=== PATIENT | male | born 1990 | race Caucasian/White ===

== ENCOUNTER 2023-08-24 03:33 | Emergency (ER) | payer OTHER ==
[2023-08-24 03:42] VITALS: BP 122/74; PULSE 110; RESP 20; TEMP 98; BMI 22.1
[2023-08-24 05:37] LABS: EOS % 0.1 % (0-4.5); HEMATOCRIT 37.1 % (35.4-49); HEMOGLOBIN 12.3 GM/dL (11.7-16.9); LYMPH % 14.4 % (8-40); MCH 33.6 pg (25.7-33.7); MCHC 33.1 g/dl (32.0-35.9); MEAN CELL VOLUME 101.6 fl (80-96); MEAN PLT VOLUME 7.5 fl (7.5-11.1); MONO % 4.8 % (3.8-10.2); NEUT % 79.7 % (42.8-82.8); PLATELET COUNT 239 10^3/uL (134-434); RBC 3.65 M/mm3 (4.00-5.60); RDW 13.2 % (11.9-15.9); WHITE BLOOD COUNT 13.7 K/mm3 (4.0-10.0)
[2023-08-24 05:54] LABS: POTASSIUM 3.9 mmol/L (3.5-5.1)
[2023-08-24] MEDS: SODIUM CHLORIDE 1,000 ML IV STA (05:54)
[2023-08-24 06:23] LABS: ALBUMIN 4.4 g/dl (3.4-5.0); BILIRUBIN,TOTAL 0.3 mg/dL (0.2-1); CALCIUM 9.6 mg/dL (8.5-10.1); TOT PROT 7.7 g/dl (6.4-8.2)
== END 2023-08-24 06:47 | disposition home or self-care (01) ==
LOC: JER 03:33
PROC: 3E0337Z Introduction of Electrolytic and Water Balance Substance into Peripheral Vein, Percutaneous Approach (ICD-10-PCS; principal; 2023-08-24)
DX: R63.0 Anorexia (principal); F41.9 Anxiety disorder, unspecified
CPT/HCPCS: 36415; 80053; 83735; 84100; 85025; 93005; 93010; 99284-25

== ENCOUNTER 2023-12-01 22:03 | Inpatient (IN) | payer OTHER ==
[2023-12-01] MEDS ORDERED: FAMOTIDINE 20 MG/50 ML IVPB 20 MG/50 ML MG IVPB ONE ×2 (22:40→23:49)
[2023-12-01 23:54] LABS: INR 1.09 (0.83-1.09); PROTHROMBIN TIME (PATIENT) 12.5 SEC (9.7-13.0)
[2023-12-01] MEDS: SODIUM CHLORIDE 0.9% 500 ML INFUS.BAG IV ONE (23:54)
[2023-12-01 23:57] LABS: ACTIVATED PTT 27.5 SECONDS (25.2-36.5)
[2023-12-02 00:06] LABS: HEMATOCRIT 47.6 % (35.4-49); HEMOGLOBIN 16.4 GM/dL (11.7-16.9); MCH 33.4 pg (25.7-33.7); MCHC 34.6 g/dl (32.0-35.9); MEAN CELL VOLUME 96.5 fl (80-96); MEAN PLT VOLUME 8.9 fl (7.5-11.1); PLATELET COUNT 240 10^3/uL (134-434); RBC 4.93 M/mm3 (4.00-5.60); RDW 12.9 % (11.9-15.9); WHITE BLOOD COUNT 28.3 K/mm3 (4.0-10.0)
[2023-12-02 01:40] LABS: HEMATOCRIT 48.8 % (35.4-49); HEMOGLOBIN 17.1 GM/dL (11.7-16.9); MCH 33.3 pg (25.7-33.7); MCHC 35.1 g/dl (32.0-35.9); MEAN CELL VOLUME 94.7 fl (80-96); MEAN PLT VOLUME 9.2 fl (7.5-11.1); PLATELET COUNT 242 10^3/uL (134-434); RBC 5.15 M/mm3 (4.00-5.60); RDW 13.2 % (11.9-15.9); WHITE BLOOD COUNT 29.9 K/mm3 (4.0-10.0)
[2023-12-02 01:54] LABS: EPI CELLS >36 /uL (0-25.1); HYALINE CASTS 16 /uL (0-3.1); URINE APPEARANCE TURBID; URINE BILIRUBIN NEGATIVE (NEGATIVE); URINE COLOR DK YELLOW; URINE GLUCOSE (UA) NEGATIVE (NEGATIVE); URINE KETONE TRACE (NEGATIVE); URINE LEUK ESTERASE TRACE (NEGATIVE); URINE NITRITE NEGATIVE (NEGATIVE); URINE PROTEIN 3+ (NEGATIVE); URINE RBC 107 /uL (0-23.9); URINE WBC 213 /uL (0-25.8)
[2023-12-02 01:58] LABS: COCAINE, UR NEGATIVE (NEGATIVE); METHADONE, UR NEGATIVE (NEGATIVE); PHENCYCLIDINE,URINE NEGATIVE (NEGATIVE); URINE AMPHETAMINES NEGATIVE (NEGATIVE); URINE BARBITURATES NEGATIVE (NEGATIVE); URINE BENZODIAZEPINES NEGATIVE (NEGATIVE)
[2023-12-02 02:05] LABS: OPIATES, URI NEGATIVE (NEGATIVE)
[2023-12-02 02:55] LABS: CHLORIDE 58 mmol/L (98-107); POTASSIUM 3.9 mmol/L (3.5-5.1)
[2023-12-02 02:57] LABS: CALCIUM 7.2 mg/dL (8.5-10.1)
[2023-12-02 02:58] LABS: ALBUMIN 5.6 g/dl (3.4-5.0); BLOOD UREA NITROGEN 95.6 mg/dL (7-18); CO2 27 mmol/L (21-32); GLUCOSE,RANDOM 86 mg/dL (74-106); MAGNESIUM 2.2 mg/dL (1.8-2.4)
[2023-12-02 03:01] LABS: VENOUS BASE EXCESS 2.5 mmol/L (-2-2); VENOUS O2 SATURATION 42.9 % (70-80); VENOUS PCO2 55.1 mmHg (38-52); VENOUS PH 7.351 (7.310-7.410)
[2023-12-02 03:01] LABS: SGOT/AST 139 U/L (15-37); SGPT/ALT 52 U/L (13-61)
[2023-12-02 03:02] LABS: TOT PROT 9.8 g/dl (6.4-8.2)
[2023-12-02 03:03] LABS: BILIRUBIN,TOTAL 0.6 mg/dL (0.2-1)
[2023-12-02 03:04] LABS: ALK PHOS 60 U/L (45-117)
[2023-12-02 03:07] LABS: ANION GAP 34 mmol/L (4-13); CREATININE 12.8 mg/dL (0.55-1.3); SODIUM 118 mmol/L (136-145)
[2023-12-02 03:08] LABS: LACTIC ACID 4.6 mmol/L (0.4-2.0)
[2023-12-02 03:08] LABS: ROULEAU 2+
[2023-12-02] MEDS ORDERED: SODIUM CHLORIDE 1,000 ML IV SCH (03:30)
[2023-12-02] MEDS: SODIUM CHLORIDE 0.9% 1000 ML INFUS.BAG IV ONE (04:54)
[2023-12-02 05:38] LABS: ANISOCYTOSIS 1+; MACROCYTOSIS 0; OVALOCYTE 1+
[2023-12-02] MEDS ORDERED: VANCOMYCIN 500 MG in DEXTROSE 5%-WATER 100 ML IVPB ONE (05:53)
[2023-12-02 05:58] VITALS: BP 105/62; PULSE 95; RESP 20; TEMP 98.1
[2023-12-02 06:15] VITALS: BMI 19.7
[2023-12-02] MEDS: PIPERACILLIN/TAZOB 3.375 GM 3.375 GM in DEXTROSE 5%-WATER - 50 ML IVPB ONE (06:53)
[2023-12-02 06:56] LABS: HIV INTERPRETATION NEGATIVE (NEGATIVE)
[2023-12-02] MEDS ORDERED: MUPIROCIN 2% TOPICAL OINTMENT FOR DECOLONIZATION NS SCH (10:00)
[2023-12-02 14:24] LABS: URINE BACTERIA 848.5 /uL (0-1359)
[2023-12-02] MEDS ORDERED: CHLORHEXIDINE GLUCONATE 4% CLEANSER FOR DECOLONIZATION TP SCH (22:00)
== END 2023-12-02 08:40 | disposition left against medical advice (07) | DRG 425 ==
LOC: JER 22:03 → JERBED 12-02 03:40 → JICU 12-02 05:51
PROVIDERS: ADMIT Internal Medicine Pulmonary Disease; ATTEND Internal Medicine Pulmonary Disease
DX: E87.1 Hypo-osmolality and hyponatremia (principal); E87.20 Acidosis, unspecified; N17.9 Acute kidney failure, unspecified; F12.121 Cannabis abuse with intoxication delirium; E83.39 Other disorders of phosphorus metabolism; E78.5 Hyperlipidemia, unspecified; F17.210 Nicotine dependence, cigarettes, uncomplicated; I10 Essential (primary) hypertension; K59.00 Constipation, unspecified; R11.2 Nausea with vomiting, unspecified; R53.83 Other fatigue; Z68.1 Body mass index [BMI] 19.9 or less, adult; E87.8 Other disorders of electrolyte and fluid balance, not elsewhere classified
CPT/HCPCS: 36415; 71046-TC-FY; 74021-TC-FY; 74176-TC; 80053; 80307; 81003; 82436; 82570; 82803; 83605; 83690; 83735; 84133; 84300; 84484; 85025; 85610; 85730; 87040; 87389; 93005; 93010; 99285-25